=== PATIENT | male | born 1980 | race Caucasian/White ===

== ENCOUNTER 2023-03-23 09:54 | Outpatient (CLI) | payer OTHER, SELFPAY ==
--- NOTE | 2023-03-23 | ECG_ITS ---
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 Interpretive Statements NAME OF STUDY: LEXISCAN SESTAMIBI STRESS TEST INDICATION: Dyspnea on exertion PROCEDURE: At the baseline, the blood pressure was 122/78 mmHg with a heart rate of 57 bpm. The electrocardiogram showed sinus bradycardia, normal axis with normal ST and T's. The Lexiscan was infused over a period of 20 seconds. A total of 0.4 milligrams of Lexiscan was infused. The stress phase was continued for a total of 5 minutes. Heart rate at the end of the stress phase was 90 bpm with a blood pressure 110/76 mmHg. The EKG at the peak infusion revealed sinus rhythm with no significant ST-T wave changes. Sestamibi was injected 20 seconds after the Lexiscan infusion. Blood pressure at the end of the recovery phase was 118/78 mmHg with a heart rate of 78 beats per minute. CONCLUSION: 1. Normal EKG response to LexiScan infusion. 2. No LexiScan induced chest pain or cardiac arrhythmia. 3. Normal blood pressure and heart rate response. 4. Sestamibi/sestamibi perfusion scan pending; see separate report. Electronically Signed On 03-24-2023 12:09:47 CDT by Елена Lim M.D. [email or web address]
--- NOTE | 2023-03-23 10:05 | NMCV_ITS ---
NM lula perf SPECT r/s* [id number] SundeepRajiv lockwood Age: 42 Gender: M : 1980 Exam Date: 03/23/2023 10:50 Ordering Phys: Lillian Abreu MD Technologist: CAROLYN Garg Exam Location: [facility] Indications: DYSPNEA ON EXERTION STRESS TEST Please [facility] for [facility] IMAGE PROTOCOL Rest/Stress 1 Lexiscan Day Radiopharmaceutical Dose (mCi) Administration Site Administered by Rest: Tc-99m 10.8 IV CAROLYN Glass Sestamibi Stress:Tc-99m 32.2 IV CAROLYN Glass Sestamibi Rest: 23-Mar-2023 60 Discovery 630 Stress: 23-Mar-2023 30 Discovery 630 0.4mg Lexiscan. Images obtained in supine and prone position. SPECT RESULTS Technical Quality: Excellent Raw Data Analysis: Normal Image Corrections: No attenuation or motion correction applied Summed Stress Score: 0 Summed Rest Score: 1 Summed Difference Score: 0 PERFUSION FINDINGS SPECT images demonstrate homogeneous tracer distribution throughout the myocardium. FUNCTIONAL RESULTS (calculated via Gated SPECT) Stress Image LV EF (%): 57 Stress EDV (mL):126 TID: 0.93 Stress ESV (mL):54 FUNCTIONAL FINDINGS: The left ventricle is normal in size. Transient Ischemia Dilatation of 0.93. The left ventricular ejection fraction is normal with a value of 57%. There is normal left ventricular wall thickening. IMPRESSIONS 1. Myocardial perfusion imaging is normal. 2. Overall left ventricular systolic function is normal without regional wall motion abnormalities, LVEF=57%. 3. Scan indicates low risk for cardiac events. Елена Lim MD (Electronically Signed) Final Date: 24 Mar 2023 12:07 S
[2023-03-23 10:11] VITALS: BMI 28.3
[2023-03-23] MEDS: regadenoson 0.4 Mg/5 ml Syringe IVP (11:29)
[2023-03-23 11:42] VITALS: BP 117/81; PULSE 87
== END 2023-03-23 09:55 | disposition home or self-care (01) ==
LOC: CDL 09:57
PROVIDERS: PCP Family Medicine; Visit Provider Family Medicine
DX: R06.09 Other forms of dyspnea (principal)
CPT/HCPCS: 36415; 78452; 93017; 96374; A9500; J2785

== ENCOUNTER → 2025-06-16 14:01 | Outpatient (BNVA) | payer OTHER, SELFPAY | PROVIDERS: PCP Family Medicine; Visit Provider Internal Medicine Cardiovascular Disease | DX: R07.9 Chest pain, unspecified (principal); R94.31 Abnormal electrocardiogram [ECG] [EKG] | CPT/HCPCS: 93005 ==

== ENCOUNTER → 2025-09-10 09:57 | Outpatient (BNVA) | payer OTHER, SELFPAY | PROVIDERS: PCP Family Medicine; Visit Provider Podiatrist Foot & Ankle Surgery | DX: M72.2 Plantar fascial fibromatosis (principal) | CPT/HCPCS: 99203 ==

== ENCOUNTER → 2025-10-02 13:01 | Outpatient (BNVA) | payer OTHER, SELFPAY | PROVIDERS: PCP Family Medicine; Visit Provider Nurse Practitioner Family | DX: L82.1 Other seborrheic keratosis (principal); D17.1 Benign lipomatous neoplasm of skin and subcutaneous tissue of trunk; L91.8 Other hypertrophic disorders of the skin; Z78.9 Other specified health status | CPT/HCPCS: 17000; 17110; 99203 ==